=== PATIENT | female | born 1945 | race Caucasian/White ===

== ENCOUNTER 2017-12-03 13:56 | Inpatient (IN) | payer MEDICARE, OTHER ==
[2017-12-03] MEDS ORDERED: Dextrose 50% Abboject 50 ML SYRINGE SLOW IVP PRN (17:16)
[2017-12-03] MEDS: Ibuprofen 200 MG TAB PO SCH (18:26)
[2017-12-03] MEDS: traMADol HCl 50 MG TAB PO PRN (20:32)
[2017-12-03] MEDS: Cyclobenzaprine 10 MG TAB PO PRN (20:33)
[2017-12-03] MEDS: Acetaminophen 325 MG TAB PO SCH (20:33)
[2017-12-03] MEDS: Famotidine 20 MG TAB PO SCH (20:34)
[2017-12-03] MEDS: Mirtazapine 15 MG TAB PO SCH (20:34)
[2017-12-03] MEDS ORDERED: Famotidine 20 MG TAB PO SCH (21:00)
--- NOTE | 2017-12-03 23:18 | HP ---
DATE OF ADMISSION: 12/03/2017 HISTORY OF PRESENT ILLNESS: The patient is a 72-year-old white female with a history of chronic dameon ntia who has fallen and suffered a fracture of her left femoral neck and is status post left hemiarth roplasty. She has had no complications, but is unable to be cared for at home and needs physical the rapy and monitoring of her dementia. She has no history of chest pain, shortness of breath, fever, c hills, nausea, or vomiting. She has no known allergies. MEDICATIONS: Include Flexeril 5 mg 3 times daily as needed, Lovenox 40 mg daily, famotidine 20 mg tw ice daily, Namenda 5 twice daily, mirtazapine 15 nightly, Seroquel 25 nightly, sertraline 50 twice da chad, potassium chloride 20 mEq daily. PAST MEDICAL HISTORY: She has past history of colon cancer of unknown severity, anxiety, and depress ion as well as dementia. PAST SURGICAL HISTORY: Positive for cholecystectomy, right hip arthroplasty, and a partial colectomy for the colon cancer. SOCIAL HISTORY: She lives with her . She drinks occasionally. She is a nonsmoker. REVIEW OF SYSTEMS: Completely negative, but the patient is a poor historian. PHYSICAL EXAMINATION: GENERAL: Patient is an elderly white female sitting up in a chair, appears somewhat confused, but in no distress, oriented to person only. VITAL SIGNS: Show temperature is 98.6, pulse 107, respirations 31, O2 sats 98% on room air, blood pr essure 139/68. HEENT: Pupils are equal, round, and react to light and accommodation. Sclerae are anicteric. Conju nctiva pale. Oral mucous membranes are well hydrated. NECK: Supple. There are no nodes or masses. JVP is not elevated. LUNGS: Clear. CARDIAC: Regular rhythm. No gallops or murmurs. ABDOMEN: Soft, nontender with no masses or organomegaly. SKIN/EXTREMITIES: Shows a healing left lateral incision of her hip. NEUROLOGIC: Shows no focal findings. LABORATORY: Pending, but the previous laboratory at [place] are within normal limits with a hemog lobin of 14.8, creatinine 0.64. Sodium 139. ASSESSMENT: A 72-year-old white female with a history of dementia who has fallen and suffered a frac ture of left femoral neck, is now status post left hip replacement. She will be monitored closely on her prehospitalization medications. Continued on DVT prophylaxis and stress ulcer prophylaxis and m onitor closely for fall risk while she is undergoing therapy.
[2017-12-04] MEDS: Acetaminophen 325 MG TAB PO SCH ×6 (01:42→20:21)
[2017-12-04] MEDS: Ibuprofen 200 MG TAB PO SCH ×4 (01:42→17:56)
[2017-12-04 05:37] LABS: #Basophils 0.1 thou/uL (0.0-0.2); #Eosinphils 0.1 thou/uL (0.0-0.7); #Lymphocytes 1.6 thou/uL (1.20-3.40); #Monocytes 0.5 thou/uL (0.11-0.59); #Neutrophils 3.3 thou/uL (1.40-6.50); %Basophils 1.3 % (0.0-1.0); %Lymphocytes 28.9 % (21.0-51.0); %Monocytes 8.9 % (0.0-10.0); Hemoglobin 8.3 g/dL (12.0-16.0); Mean Corpuscular HGB CONC 31.8 g/dL (32.0-36.0); Mean Corpuscular Hemoglobin 29.4 pg (27.0-31.0); Mean Corpuscular Volume 92.2 fl (81.0-99.0); Mean Platelet Volume 6.7 fL (7.4-10.4); Platelet Count 301 thou/uL (130-400); RBC Distribution Width 12.4 % (11.5-14.5); Red Blood Cell (RBC) Count 2.82 mill/uL (4.20-5.40); White Blood Cell (WBC) Count 5.6 thou/uL (4.8-10.8)
[2017-12-04 05:57] LABS: ALT (SGPT) 12 U/L (8-55); AST (SGOT) 16 U/L (5-34); Albumin 2.8 g/dL (3.4-4.8); Alkaline Phosphatase 106 U/L (40-150); Anion Gap 12 mmol/L (10-20); BUN (Urea Nitrogen) 12 mg/dL (9.8-20.1); Bilirubin, Total 0.8 mg/dL (0.2-1.2); Calc. Creatinine Clearance 83 mL/min (70-130); Calcium 8.3 mg/dL (7.8-10.44); Carbon Dioxide 26 mmol/L (23-31); Chloride 110 mmol/L (98-107); Estimated GFR-MDRD Greater than 90; Globulin 2.2 g/dL (2.4-3.5); Glucose 96 mg/dL (83-110); Potassium 3.6 mmol/L (3.5-5.1); Sodium 144 mmol/L (136-145)
[2017-12-04] MEDS: Famotidine 20 MG TAB PO SCH ×2 (09:45→20:21)
[2017-12-04] MEDS: Donepezil HCl 10 MG TAB PO SCH (09:46)
[2017-12-04] MEDS: Stress 600 With Zinc 1 TAB PO SCH (09:46)
[2017-12-04] MEDS: Enoxaparin Sodium 40 MG/0.4 ML SYRINGE SC SCH (09:47)
[2017-12-04] MEDS: Mirtazapine 15 MG TAB PO SCH (20:22)
[2017-12-04] MEDS: traMADol HCl 50 MG TAB PO PRN (20:22)
--- NOTE | 2017-12-04 21:36 | PRG ---
DATE OF SERVICE: 12/04/2017 SUBJECTIVE: The patient is very tearful, agitated, and nervous, but in no painful distress. She has been sleeping only intermittently at night, on Namenda, Remeron, Seroquel and sertraline. OBJECTIVE: VITAL SIGNS: Show her to have a blood pressure of 118/72, temperature 98.6, pulse 109, respirations 22, O2 sats 98% on room air. LUNGS: Clear. CARDIAC: Shows regular rhythm. ABDOMEN: Soft and nontender. SKIN AND EXTREMITIES: Display no edema, clubbing or cyanosis. Left hip is healing well. ASSESSMENT: 1. Resolving left total hip after a fall and fracture. 2. Significant dementia with behavioral disturbance, depression, uncontrolled. PLAN: Increase Seroquel to 50 mg at night and continue 25 mg in the morning, and continue other medi cations and monitor closely.
[2017-12-05] MEDS: Acetaminophen 325 MG TAB PO SCH ×6 (01:57→20:15)
[2017-12-05] MEDS: Ibuprofen 200 MG TAB PO SCH ×4 (01:57→17:48)
[2017-12-05] MEDS: Enoxaparin Sodium 40 MG/0.4 ML SYRINGE SC SCH (09:25)
[2017-12-05] MEDS: Stress 600 With Zinc 1 TAB PO SCH (09:25)
[2017-12-05] MEDS: Famotidine 20 MG TAB PO SCH ×2 (09:25→20:14)
[2017-12-05] MEDS: Donepezil HCl 10 MG TAB PO SCH (09:26)
[2017-12-05] MEDS ORDERED: Haloperidol Lactate 5 MG/ML VIAL IM SCH (16:00)
--- NOTE | 2017-12-05 18:58 | PRG ---
DATE OF SERVICE: 12/05/2017 SUBJECTIVE: The patient is awake, alert, agitated, very confused, not sleeping despite being on Sero quel 50 mg at night and 25 mg at day and in fact today required 2 mg of Haldol IM to control her agit ation. OBJECTIVE: VITAL SIGNS: Vital signs have been stable with blood pressure 146/67, pulse 102 with agitation, temp erature 98, respirations 29, O2 sats 95% on room air. LUNGS: Clear. CARDIAC: Shows regular rhythm. ABDOMEN: Soft, nontender. EXTREMITIES: Left hip shows healing well with no erythema, warmth or drainage. LABORATORY DATA: Sodium is 144, potassium 3.6, chloride 110, bicarbonate 26, BUN 12, creatinine 0.54 , glucose 96, calcium 8.3, total bilirubin 0.8, AST 16, ALT 12, albumin 2.8, globulin 2.2. White cou nt 5600, hematocrit 26, hemoglobin 8.3. ASSESSMENT: 1. Resolving left total hip after a fall and fracture. 2. Significant exacerbation of dementia with behavioral disturbance on Seroquel 50 at night. PLAN: Increase Seroquel to 100 at night. Continue 25 in the morning. Continue sertraline 50 twice daily and Remeron 15 mg nightly.
[2017-12-05] MEDS: Mirtazapine 15 MG TAB PO SCH (20:13)
[2017-12-05] MEDS: Cyclobenzaprine 10 MG TAB PO PRN (20:14)
[2017-12-05] MEDS: traMADol HCl 50 MG TAB PO PRN (20:15)
[2017-12-06] MEDS: Ibuprofen 200 MG TAB PO SCH ×4 (01:20→17:50)
[2017-12-06] MEDS: Acetaminophen 325 MG TAB PO SCH ×6 (01:20→19:51)
[2017-12-06] MEDS: Stress 600 With Zinc 1 TAB PO SCH (10:18)
[2017-12-06] MEDS: Famotidine 20 MG TAB PO SCH ×2 (10:19→19:47)
[2017-12-06] MEDS: Donepezil HCl 10 MG TAB PO SCH (10:19)
[2017-12-06] MEDS: Enoxaparin Sodium 40 MG/0.4 ML SYRINGE SC SCH (10:22)
[2017-12-06] MEDS ORDERED: Acetaminophen 325 MG TAB ONE (17:47)
[2017-12-06] MEDS: Mirtazapine 15 MG TAB PO SCH (19:46)
[2017-12-07] MEDS: Ibuprofen 200 MG TAB PO SCH ×4 (01:37→17:40)
[2017-12-07] MEDS: Acetaminophen 500 MG TAB PO SCH ×6 (01:37→20:35)
--- NOTE | 2017-12-07 06:50 | PRG ---
DATE OF SERVICE: 12/06/2017. SUBJECTIVE: The patient is sitting up in the chair, still very confused despite 50 mg of Seroquel th is afternoon, but not as agitated, although she was agitated with therapy today and cooperated only m inimally. OBJECTIVE: VITAL SIGNS: Shows her blood pressure is 118/55, temperature is 97, pulse 83, O2 sat 99% on room air , respirations 18. LUNGS: Lungs are clear. CARDIAC: Cardiac examination showed regular rhythm. ABDOMEN: Abdomen is soft and nontender. SKIN AND EXTREMITIES: Show resolving left lateral hip incision. ASSESSMENT: 1. Resolving left total hip after a fall and fracture. 2. Increased dementia with exacerbation with hospital delirium, did sleep last night with 100 mg, S eroquel, 25 mg this morning did not calm her enough to cooperate with therapy. PLAN: 1. Increase Seroquel 50 mg in the morning, continuous 100 mg at night. 2. Discuss PT, OT with therapy.
[2017-12-07] MEDS: Enoxaparin Sodium 40 MG/0.4 ML SYRINGE SC SCH (08:21)
[2017-12-07] MEDS: Donepezil HCl 10 MG TAB PO SCH (08:21)
[2017-12-07] MEDS: Famotidine 20 MG TAB PO SCH ×2 (08:22→20:36)
[2017-12-07] MEDS: Stress 600 With Zinc 1 TAB PO SCH (08:26)
[2017-12-07] MEDS: Cyclobenzaprine 10 MG TAB PO PRN (20:34)
[2017-12-07] MEDS: Mirtazapine 15 MG TAB PO SCH (20:36)
[2017-12-07] MEDS: traMADol HCl 50 MG TAB PO PRN (20:37)
[2017-12-08] MEDS: Ibuprofen 200 MG TAB PO SCH ×5 (00:42→17:27)
[2017-12-08] MEDS: Acetaminophen 500 MG TAB PO SCH ×7 (00:42→20:27)
--- NOTE | 2017-12-08 07:03 | PRG ---
DATE OF SERVICE: 12/07/2017 SUBJECTIVE: The patient is up and more agitated today requiring p.r.n. Haldol with intermittent epis odes of severe agitation and confusion. Discussed with therapy; however, states that the patient is ambulating and is not cognizant of safety techniques, but appears to be getting stronger and has reac hed almost the end of her physical therapy needs. OBJECTIVE: VITAL SIGNS: Temperature is 98, pulse 92, respirations 18, O2 sats 96% on room air, blood pressure 1 25/62. LUNGS: Lungs are Clear. CARDIAC: Shows regular rhythm. ABDOMEN: Abdomen is soft and nontender. SKIN AND EXTREMITIES: Skin and extremities reveal healing left hip incision. Physical therapy states the patient walked 460 feet today, complete guard assistance with a rolling w alker, only requiring safety cues. ASSESSMENT: 1. Resolving left total hip. 2. Dementia with superimposed hospital delirium limiting therapy. PLAN: Discuss discharge planning with case management and family and therapy today.
[2017-12-08] MEDS: Stress 600 With Zinc 1 TAB PO SCH (08:06)
[2017-12-08] MEDS: Donepezil HCl 10 MG TAB PO SCH (08:07)
[2017-12-08] MEDS: Enoxaparin Sodium 40 MG/0.4 ML SYRINGE SC SCH (08:07)
[2017-12-08] MEDS: Famotidine 20 MG TAB PO SCH ×2 (08:08→20:29)
[2017-12-08] MEDS: Haloperidol Lactate 5 MG/ML VIAL IM PRN (11:29)
[2017-12-08] MEDS: traMADol HCl 50 MG TAB PO PRN (20:28)
[2017-12-08] MEDS: Mirtazapine 15 MG TAB PO SCH (20:29)
[2017-12-09] MEDS: Ibuprofen 200 MG TAB PO SCH ×5 (01:31→21:35)
[2017-12-09] MEDS: Acetaminophen 500 MG TAB PO SCH ×8 (01:32→22:33)
--- NOTE | 2017-12-09 07:36 | PRG ---
DATE OF SERVICE: 12/08/2017 SUBJECTIVE: The patient is less confused, but is somewhat sedated. He is ambulating, but is unable to maintain ADLs without direction. OBJECTIVE: manager administrative services discussed with who is unable to care for her and is evaluating nursi ng home placement. VITAL SIGNS: Temperature is 97.9, pulse 83, respirations 18, O2 sats 97% on room air, blood pressure 120/59. EXTREMITIES: Hip incision appears to be healing well. ASSESSMENT: 1. Resolving left total hip. 2. Significant dementia with superimposed hospital delirium, inability to maintain ADLs. PLAN: Case management to discuss intermediate placement with as the patient is close to rece iving maximum hospital benefit.
[2017-12-09] MEDS: Famotidine 20 MG TAB PO SCH ×2 (07:57→21:32)
[2017-12-09] MEDS: Stress 600 With Zinc 1 TAB PO SCH (07:58)
[2017-12-09] MEDS: Donepezil HCl 10 MG TAB PO SCH (07:58)
[2017-12-09] MEDS: Enoxaparin Sodium 40 MG/0.4 ML SYRINGE SC SCH (07:58)
[2017-12-09] MEDS: Haloperidol Lactate 5 MG/ML VIAL IM PRN (12:55)
[2017-12-09] MEDS: Cyclobenzaprine 10 MG TAB PO PRN (15:13)
[2017-12-09] MEDS: Mirtazapine 15 MG TAB PO SCH (21:32)
[2017-12-09] MEDS: traMADol HCl 50 MG TAB PO PRN (21:33)
[2017-12-10] MEDS: Ibuprofen 200 MG TAB PO SCH ×3 (06:33→17:04)
[2017-12-10] MEDS: Famotidine 20 MG TAB PO SCH ×2 (07:52→21:06)
[2017-12-10] MEDS: Stress 600 With Zinc 1 TAB PO SCH (07:53)
[2017-12-10] MEDS: Enoxaparin Sodium 40 MG/0.4 ML SYRINGE SC SCH (07:54)
[2017-12-10] MEDS: Donepezil HCl 10 MG TAB PO SCH (07:54)
[2017-12-10] MEDS: Acetaminophen 500 MG TAB PO SCH ×4 (07:54→21:06)
[2017-12-10] MEDS: traMADol HCl 50 MG TAB PO PRN ×2 (10:55→17:03)
[2017-12-10] MEDS: Mirtazapine 15 MG TAB PO SCH (21:06)
[2017-12-10] MEDS: Haloperidol Lactate 5 MG/ML VIAL IM PRN (22:25)
[2017-12-11] MEDS: Acetaminophen 500 MG TAB PO SCH ×6 (00:14→20:14)
[2017-12-11] MEDS: Ibuprofen 200 MG TAB PO SCH ×5 (00:15→18:04)
--- NOTE | 2017-12-11 07:49 | PRG ---
DATE OF SERVICE: 12/11/2017 SUBJECTIVE: Ms. Parra is a very pleasant 72-year-old white female with a history of chronic dementia . Unfortunately, she fell and fractured her left femoral neck, hip. She is status post left hemiart hroplasty. She was transferred to [facility] to increase her strength and her stamina. Unfortunately, her is unable to take care of her and so she is pending prison placement . I understand that she has been accepted to the prison and will be transferred out on Wednesday. PHYSICAL EXAMINATION: VITAL SIGNS: Last night revealed blood pressure 142/71, pulse 91-93, respirations 20, O2 sat 95% on room air, T-max 99.1. GENERAL: This is a well-developed, well-nourished, very pleasant white female that at times is somew hat confused. HEENT: Reveals normocephalic, nontraumatic cranium. Pupils equal, round, and reactive. Extraocular movements intact. Nose and throat are slightly dry. NECK: Supple, without mass, nodes or bruits. LUNGS: Chest is clear to auscultation. No rales, no rhonchi, no wheezes are heard. No cough is not ed. HEART: Reveals a regular rate and rhythm without murmurs, gallops or rubs. ABDOMEN: Soft, nontender, without organomegaly, normal bowel sounds are noted. No rebound or guardi ng is noted. GENITOURINARY: Deferred. EXTREMITIES: Reveal left hip incision still healing well. ASSESSMENT: 1. Status post left femoral neck fracture post hemiarthroplasty. 2. Dementia. 3. Deep venous thrombosis prophylaxis. 4. Anxiety depressive disorder. PLAN: 1. Continue present medications. 2. Continue physical therapy and occupational therapy. 3. Stress ulcer prophylaxis. 4. Decubitus precautions. 5. Deep venous thrombosis prophylaxis. 6. Physical therapy and occupational therapy. 7. Plan on discharge on Wednesday.
[2017-12-11] MEDS: Enoxaparin Sodium 40 MG/0.4 ML SYRINGE SC SCH (08:19)
[2017-12-11] MEDS: Famotidine 20 MG TAB PO SCH ×2 (08:20→20:14)
[2017-12-11] MEDS: Stress 600 With Zinc 1 TAB PO SCH (08:21)
[2017-12-11] MEDS: Donepezil HCl 10 MG TAB PO SCH (08:21)
[2017-12-11] MEDS: Haloperidol Lactate 5 MG/ML VIAL IM PRN (14:08)
[2017-12-11] MEDS ORDERED: Haloperidol Lactate 5 MG/ML VIAL IM SCH (19:15)
[2017-12-11] MEDS: Mirtazapine 15 MG TAB PO SCH (20:14)
[2017-12-12] MEDS: Acetaminophen 500 MG TAB PO SCH ×6 (02:27→20:53)
[2017-12-12] MEDS: Ibuprofen 200 MG TAB PO SCH ×4 (02:27→18:07)
[2017-12-12 07:14] VITALS: BMI 23.9
--- NOTE | 2017-12-12 08:13 | PRG ---
DATE OF SERVICE: 12/12/2017 DATE OF ADMISSION: 12/03/2017 SUBJECTIVE: Ms. Parra is a very pleasant 72-year-old white female with a history of chronic dementia . She fell unfortunately and fractured her left femur. She had a femoral neck hemiarthroplasty on t he left hand side done. She was transferred to [facility] to increase her strength a nd her stamina. The patient was very combative and out of control yesterday evening. We did have to give her a shot of Haldol 5 mg, which calmed her down, as she slept most of the night, but she did get up 3 times to go to urinate and then went back to sleep. PHYSICAL EXAMINATION: VITAL SIGNS: This morning reveal blood pressure 116/57, pulse 80-84, respirations 20, O2 sat 93%-98% on room air, T-max 98.4. GENERAL: This is a well-developed, well-nourished, white female in no apparent distress at this time . She is resting still. She is arousable. HEENT: Reveals normocephalic, nontraumatic cranium. Nose and throat are still dry. NECK: Supple, without mass, nodes, or bruits. LUNGS: Chest is clear to auscultation. No rales, rhonchi, or wheezes are heard. No cough is noted. HEART: Reveals a regular rate and rhythm without murmurs, gallops, or rubs. ABDOMEN: Soft, nontender. Normal bowel sounds are noted. EXAM: Deferred. EXTREMITIES: Reveal left hip arthroplasty. IMPRESSION: 1. Left post femoral neck fracture post-hemiarthroplasty. 2. Dementia. 3. Deep venous thrombosis prophylaxis. 4. Anxiety depressive disorder. 5. Decubitus precautions. 6. Generalized weakness. PLAN: 1. Continue present meds. 2. Continue physical therapy and occupational therapy. 3. Stress ulcer prophylaxis. 4. Decubitus precautions. 5. Physical therapy and occupational therapy. 6. The plan is to discharge the patient to a nursing care facility per Dr. Martinez on Wednesday.
[2017-12-12] MEDS: Enoxaparin Sodium 40 MG/0.4 ML SYRINGE SC SCH (09:59)
[2017-12-12] MEDS: Donepezil HCl 10 MG TAB PO SCH (10:00)
[2017-12-12] MEDS: Stress 600 With Zinc 1 TAB PO SCH (10:01)
[2017-12-12] MEDS: Famotidine 20 MG TAB PO SCH ×2 (10:01→20:54)
[2017-12-12] MEDS: traMADol HCl 50 MG TAB PO PRN ×2 (12:58→20:54)
[2017-12-12] MEDS: Haloperidol Lactate 5 MG/ML VIAL IM PRN (15:20)
[2017-12-12] MEDS: Cyclobenzaprine 10 MG TAB PO PRN (18:07)
[2017-12-12] MEDS: Mirtazapine 15 MG TAB PO SCH (20:54)
[2017-12-13] MEDS: Acetaminophen 500 MG TAB PO SCH ×3 (04:30→09:40)
[2017-12-13] MEDS: Ibuprofen 200 MG TAB PO SCH ×2 (04:30→06:27)
[2017-12-13 07:41] VITALS: BP 134/62; TEMP 98.2
[2017-12-13] MEDS: Stress 600 With Zinc 1 TAB PO SCH (09:40)
[2017-12-13] MEDS: Donepezil HCl 10 MG TAB PO SCH (09:41)
[2017-12-13] MEDS: Enoxaparin Sodium 40 MG/0.4 ML SYRINGE SC SCH (09:41)
[2017-12-13] MEDS: Famotidine 20 MG TAB PO SCH (09:41)
== END 2017-12-13 10:34 | DRG 560 ==
LOC: NAV ACUTE 13:56
PROVIDERS: ADMIT Internal Medicine; ATTEND Internal Medicine
DX: S72.002D Fracture of unspecified part of neck of left femur, subsequent encounter for closed fracture with routine healing (principal); F05 Delirium due to known physiological condition; F03.91 Unspecified dementia, unspecified severity, with behavioral disturbance; Z85.038 Personal history of other malignant neoplasm of large intestine; F41.9 Anxiety disorder, unspecified; F32.9 Major depressive disorder, single episode, unspecified; Z96.642 Presence of left artificial hip joint; R45.1 Restlessness and agitation
CPT/HCPCS: 36415; 80053; 85025; 87070; 87205; G8978-GP-CK; G8979-GP-CJ; J1630; J1650